=== PATIENT | female | born 1980 | race African-American/Black ===

== ENCOUNTER 2017-05-24 01:20 | Emergency (ER) | payer BC ==
[~2017-05-24] VITALS: Ht 167.6 cm; Wt 53.5 kg
[~2017-05-24 01:20] MED LIST: ACETAMINOPHEN-1 EAC1 PO; ATIVAN0.5 MG; ATIVAN1 MG PO; CYMBALTA60 MG PO; DICLOFENAC SODI75 MG PO; LIORESAL 10 MG10 MG; NEURONTIN600 MG PO; PERCOCET PO; PREDNISONE 20 M20 M1 PO; ROBAXIN 750 MG750 M1 PO; TEGRETOL XR200 MG PO; ZOFRAN ODT4 MG PO; [UNRECOGNIZED DRUG - OTHER] PO
[2017-05-24] MEDS ORDERED: [UNRECOGNIZED DRUG - OTHER] IM (01:33)
[2017-05-24] MEDS ORDERED: PERCOCET PO (01:34)
[2017-05-24] MEDS ORDERED: MEDROLDOSEPACK PO (03:09)
[2017-05-24] MEDS ORDERED: FLEXERIL PO (03:09)
[2017-05-24 03:38] VITALS: BP 106/66
== END 2017-05-24 03:38 | disposition home or self-care (01) ==
LOC: M.ERS 01:20
DX: M54.12 Radiculopathy, cervical region (principal)